=== PATIENT | female | born 1960 ===

== ENCOUNTER 2017-03-17 17:10 | Emergency (ER) | payer MEDICAID ==
[2017-03-17 17:18] VITALS: BP 115/67; PULSE 65; RESP 18; TEMP 98.1; O2SAT 100
[2017-03-17] MEDS ORDERED: Atropine-Diphenoxylate 0.025-2.5 mg Tab PO STA (17:46)
[2017-03-17] MEDS ORDERED: Sodium Chloride 0.9% 1,000 ML IV STA (17:46)
--- NOTE | 2017-03-17 17:51 | ED PDOC ---
HPI: Abdomen Time Seen by Provider: 03/17/17 17:33 Chief Complaint (Nursing): GI Problem Chief Complaint (Provider): Diarrhea History Per: Patient History/Exam Limitations: no limitations Current Symptoms Are (Timing): Still Present Severity: Moderate Associated Symptoms: denies: Fever, Vomiting Additional Complaint(s): Estephanie Chicas is a 56 y/o female presenting to the ER on 03/17/2017 with diarrhea for two weeks. Patient denies any bleeding, fever, or vomiting. However, she reports associated generalized abdominal pain. Patient notes she recently returned from [place]. Offers no other medical or physical complaints at this time. Past Medical History Reviewed: Historical Data, Nursing Documentation, Vital Signs Vital Signs: Last Vital Signs Temp 98.1 F 03/17/17 17:12 Pulse 65 03/17/17 17:12 Resp 18 03/17/17 17:12 BP 115/67 03/17/17 17:12 Pulse Ox 100 03/17/17 17:55 - Medical History PMH: Depression, Gastritis, HTN, Hypercholesterolemia - Surgical History Surgical History: No Surg Hx - Family History Family History: States: Hypertension - Social History Current smoker - smoking cessation education provided: No Alcohol: None Drugs: Denies - Home Medications Home Medications: Ambulatory Orders Medication Instructions Recorded Escitalopram [Lexapro] 10 mg PO DAILY 04/09/15 Naproxen 500 mg PO BID PRN #14 tab 04/09/15 Sulfamethoxazole/Trimethopri 1 tab PO BID #20 tab 04/09/15 [Bactrim Ds 800 mg-160 mg] Zolpidem Tartrate [Zolpidem] 10 mg PO HS 04/09/15 Albuterol Sulfate [Ventolin Hfa] 2 puff IH Q6H PRN 04/15/15 Atorvastatin Calcium [Lipitor] 20 mg PO DAILY 04/15/15 Clindamycin [Cleocin] 300 mg PO QID #40 cap 04/15/15 Ergocalciferol (Vitamin D2) 50,000 unit PO QWK 04/15/15 [Vitamin D] HCTZ/Losartan Potassium [Hyzaar 1 tab PO DAILY 04/15/15 12.5 mg-50 mg] Ibuprofen [Motrin] 600 mg PO Q6H PRN #15 tab 04/15/15 Mometasone/Formoterol [Dulera] 1 puff IH BID 04/15/15 Olanzapine [Zyprexa] 2.5 mg PO BID 04/15/15 oxyCODONE/Acetaminophen [Percocet 1 ea PO Q6H PRN #15 tab 04/15/15 5/325 mg Tab] Guaifenesin [Mucinex] 600 mg PO BID PRN #10 tab 12/12/15 Ibuprofen 600 mg PO Q6 PRN #20 tablet 12/12/15 Loperamide [Imodium] 2 mg PO Q4 PRN #12 cap 12/12/15 Dicyclomine [Dicyclomine HCl] 10 mg PO BID PRN #10 cap 01/06/16 Famotidine [Pepcid] 20 mg PO BID #30 tab 01/06/16 Nitrofurantoin Macrocrystals 100 mg PO BID #14 cap 01/06/16 [Macrobid] Ibuprofen [Motrin] 600 mg PO Q6 #20 tab 02/06/16 Ciprofloxacin [Cipro] 500 mg PO BID #10 tab 10/11/16 Atropine/Diphenoxylate [Lonox 1 tab PO Q8 #10 tab 03/17/17 0.025 MG-2.5 MG] - Allergies Allergies/Adverse Reactions: Allergies Allergy/AdvReac Type Severity Reaction Status Date / Time Penicillins Allergy ANAPHYLAXIS Verified 03/08/16 11:40 Review of Systems ROS Statement: Except As Marked, All Systems Reviewed And Found Negative Constitutional: Negative for: Fever Gastrointestinal: Positive for: Abdominal Pain (generalized ), Diarrhea. Negative for: Vomiting, Hematochezia Genitourinary Female: Negative for: Hematuria Physical Exam - Reviewed Nursing Documentation Reviewed: Yes Vital Signs Reviewed: Yes - Physical Exam Appears: Positive for: Non-toxic, No Acute Distress Head Exam: Positive for: ATRAUMATIC, NORMOCEPHALIC Skin: Positive for: Normal Color. Negative for: Rash Eye Exam: Positive for: Normal appearance, EOMI, PERRL Neck: Positive for: Normal, Painless ROM, Supple Cardiovascular/Chest: Positive for: Regular Rate, Rhythm. Negative for: Murmur Respiratory: Positive for: Normal Breath Sounds. Negative for: Wheezing, Respiratory Distress Gastrointestinal/Abdominal: Positive for: Tenderness ((+) mild diffuse w/ no localization ) Extremity: Positive for: Normal ROM. Negative for: Tenderness, Deformity, Swelling Neurologic/Psych: Positive for: Alert, Oriented. Negative for: Motor/Sensory Deficits - Laboratory Results Result Diagrams: 03/17/17 18:20 03/17/17 18:20 - ECG O2 Sat by Pulse Oximetry: 100 Medical Decision Making Medical Decision Makin:33 Initial Impression- 56 y/o female with diarrhea Initial Plan- * CMP * CBC w/ differential * Sodium Chloride 1,000 ml IV * Atropine/Diphenoxylate * Re-evaluate Documented by Yuan Salazar, acting as a scribe for Luis Shah MD. All medical record entries made by the Scribe were at my direction and personally dictated by me. I have reviewed the chart and agree that the record accurately reflects my personal performance of the history, physical exam, medical decision making, and the department course for this patient. I have also personally directed, reviewed, and agree with the discharge instructions and disposition. Disposition - Clinical Impression Clinical Impression: Gastroenteritis - Patient ED Disposition Is Patient to be Admitted: No - Disposition Referrals: [facility] [Outside] Disposition: Routine/Home Disposition Time: 20:28 Condition: FAIR Prescriptions: Atropine/Diphenoxylate [Lonox 0.025 MG-2.5 MG] 1 tab PO Q8 #10 tab Instructions: Gastroenteritis (ED)
[2017-03-17 18:36] LABS: BASO # 0.1 K/uL (0.0-0.2); BASO % 0.6 % (0.0-2.0); EOS # 0.1 K/uL (0.0-0.7); EOS % 0.8 % (0.0-4.0); HEMATOCRIT 36.9 % (34.0-47.0); LYMPH # 3.7 K/uL (1.0-4.3); LYMPH % 40.1 % (20.0-40.0); MEAN CELL VOLUME 90.3 fl (81.0-99.0); MEAN CORPUSCULAR HEMOGLOBIN 29.9 pg (27.0-31.0); MEAN CORPUSCULAR HGB CONC 33.1 g/dL (33.0-37.0); MEAN PLATELET VOLUME 8.9 fl (7.2-11.7); MONO # 0.8 K/uL (0.0-0.8); MONO % 9.1 % (0.0-10.0); NEUT # 4.5 K/uL (1.8-7.0); NEUT % 49.4 % (50.0-75.0); NRBC % 0.1 % (0.0-0.0); RED CELL DISTRIBUTION WIDTH 14.3 % (11.5-14.5); WHITE BLOOD COUNT 9.2 K/uL (4.8-10.8)
[2017-03-17 18:39] LABS: ALB/GLOB RATIO 1.1 (1.0-2.1); ALKALINE PHOSPHATASE 52 U/L (38-126); ALT/SGPT 50 U/L (9-52); AST/SGOT 25 U/L (14-36); BILIRUBIN,TOTAL 0.4 mg/dl (0.2-1.3); BLOOD UREA NITROGEN 14 mg/dl (7-17); CALCIUM 9.1 mg/dL (8.4-10.2); CARBON DIOXIDE 22 mmol/L (22-30); CHLORIDE 105 mmol/L (98-107); GFR AFRICAN-AMERICAN > 60; GLUCOSE,RANDOM 108 mg/dL (65-105); SODIUM 140 mmol/l (132-148)
== END 2017-03-17 21:50 | disposition home or self-care (01) ==
LOC: H.ER 17:10
DX: K52.9 Noninfective gastroenteritis and colitis, unspecified (principal); E78.00 Pure hypercholesterolemia, unspecified; F32.9 Major depressive disorder, single episode, unspecified; I10 Essential (primary) hypertension; Z88.0 Allergy status to penicillin

== ENCOUNTER 2017-04-26 20:07 | Emergency (ER) | payer MEDICAID ==
[2017-04-26 20:13] VITALS: BP 120/69; PULSE 60; RESP 16; TEMP 98.2; O2SAT 99
--- NOTE | 2017-04-26 20:51 | ED PDOC ---
HPI: Female Pain Time Seen by Provider: 04/26/17 20:21 Chief Complaint (Nursing): Female Genitourinary Chief Complaint (Provider): Vaginal itching and discharge History Per: Patient History/Exam Limitations: no limitations Onset/Duration Of Symptoms: Days (3) Additional Complaint(s): Pt reports itchy rash on the external genitals and thick white discharge x 2 days. Past Medical History Reviewed: Historical Data, Nursing Documentation, Vital Signs Vital Signs: Last Vital Signs Temp 98.2 F 04/26/17 20:10 Pulse 60 04/26/17 20:10 Resp 16 04/26/17 20:10 BP 120/69 04/26/17 20:10 Pulse Ox 99 04/26/17 20:10 - Medical History PMH: Depression, Gastritis, HTN, Hypercholesterolemia - Surgical History Surgical History: No Surg Hx - Family History Family History: States: Hypertension - Living Arrangements Living Arrangements: With Family - Social History Current smoker - smoking cessation education provided: No - Home Medications Home Medications: Ambulatory Orders Medication Instructions Recorded Escitalopram [Lexapro] 10 mg PO DAILY 04/09/15 Naproxen 500 mg PO BID PRN #14 tab 04/09/15 Sulfamethoxazole/Trimethopri 1 tab PO BID #20 tab 04/09/15 [Bactrim Ds 800 mg-160 mg] Zolpidem Tartrate [Zolpidem] 10 mg PO HS 04/09/15 Albuterol Sulfate [Ventolin Hfa] 2 puff IH Q6H PRN 04/15/15 Atorvastatin Calcium [Lipitor] 20 mg PO DAILY 04/15/15 Clindamycin [Cleocin] 300 mg PO QID #40 cap 04/15/15 Ergocalciferol (Vitamin D2) 50,000 unit PO QWK 04/15/15 [Vitamin D] HCTZ/Losartan Potassium [Hyzaar 1 tab PO DAILY 04/15/15 12.5 mg-50 mg] Ibuprofen [Motrin] 600 mg PO Q6H PRN #15 tab 04/15/15 Mometasone/Formoterol [Dulera] 1 puff IH BID 04/15/15 Olanzapine [Zyprexa] 2.5 mg PO BID 04/15/15 oxyCODONE/Acetaminophen [Percocet 1 ea PO Q6H PRN #15 tab 04/15/15 5/325 mg Tab] Guaifenesin [Mucinex] 600 mg PO BID PRN #10 tab 12/12/15 Ibuprofen 600 mg PO Q6 PRN #20 tablet 12/12/15 Loperamide [Imodium] 2 mg PO Q4 PRN #12 cap 12/12/15 Dicyclomine [Dicyclomine HCl] 10 mg PO BID PRN #10 cap 01/06/16 Famotidine [Pepcid] 20 mg PO BID #30 tab 01/06/16 Nitrofurantoin Macrocrystals 100 mg PO BID #14 cap 01/06/16 [Macrobid] Ibuprofen [Motrin] 600 mg PO Q6 #20 tab 02/06/16 Ciprofloxacin [Cipro] 500 mg PO BID #10 tab 10/11/16 Atropine/Diphenoxylate [Lonox 1 tab PO Q8 #10 tab 03/17/17 0.025 MG-2.5 MG] Fluconazole [Diflucan] 150 mg PO ONCE #1 tab 04/26/17 - Allergies Allergies/Adverse Reactions: Allergies Allergy/AdvReac Type Severity Reaction Status Date / Time Penicillins Allergy ANAPHYLAXIS Verified 03/08/16 11:40 Review of Systems ROS Statement: Except As Marked, All Systems Reviewed And Found Negative Constitutional: Negative for: Fever Genitourinary Female: Positive for: Vaginal Discharge, Rash Physical Exam - Reviewed Nursing Documentation Reviewed: Yes Vital Signs Reviewed: Yes - Physical Exam Appears: Positive for: Well, Non-toxic, No Acute Distress Head Exam: Positive for: ATRAUMATIC, NORMAL INSPECTION, NORMOCEPHALIC Skin: Positive for: Normal Color, Warm, DRY Eye Exam: Positive for: Normal appearance ENT: Positive for: Normal ENT Inspection Neck: Positive for: Normal, Painless ROM Respiratory: Negative for: Accessory Muscle Use, Respiratory Distress Back: Positive for: Normal Inspection Extremity: Positive for: Normal ROM. Negative for: Tenderness Neurologic/Psych: Positive for: Alert, Oriented - ECG O2 Sat by Pulse Oximetry: 99 Disposition - Clinical Impression Clinical Impression: Vulvovaginal candidiasis - Patient ED Disposition Is Patient to be Admitted: No Counseled Patient/Family Regarding: Diagnosis, Need For Followup, Rx Given - Disposition Referrals: [facility] [Outside] Disposition: Routine/Home Disposition Time: 21:03 Condition: GOOD Prescriptions: Fluconazole [Diflucan] 150 mg PO ONCE #1 tab Instructions: Vulvovaginal Candidiasis (ED)
== END 2017-04-26 21:19 | disposition home or self-care (01) ==
LOC: H.ER 20:07
DX: B37.3 Candidiasis of vulva and vagina (principal); E78.00 Pure hypercholesterolemia, unspecified; I10 Essential (primary) hypertension; Z88.0 Allergy status to penicillin

== ENCOUNTER 2017-09-13 14:56 | Emergency (ER) | payer MEDICAID ==
[2017-09-13 15:07] VITALS: RESP 20; TEMP 97.9; O2SAT 99
[2017-09-13] MEDS ORDERED: Albuterol-Ipratrop 3 mg / 0.5 (3 ml) UD INH STA (15:28)
--- NOTE | 2017-09-13 15:41 | ED PDOC ---
HPI: Chest Pain Time Seen by Provider: 09/13/17 15:09 Chief Complaint (Nursing): Chest Pain Chief Complaint (Provider): Palpitations, difficulty breathing History Per: Patient History/Exam Limitations: no limitations Onset/Duration Of Symptoms: Days (x2) Current Symptoms Are (Timing): Still Present Additional Complaint(s): Estephanie Marquez is a 57 year old obese female with a past medical history of hypertension, high cholesterol, and sleep apnea presenting to the ED for an evaluation of palpitations and difficulty breathing when walking occurring for 2 days prior to arrival. The patient reports visiting the clinic for similar symptoms on September 02, 2017 where she had a mammogram and an ultrasound completed, and was then referred to [facility] for a follow up but did not follow up. The patient reports associated sharp, intermittent back pain for which she normally takes Ibuprofen. She denies fever. Of note, the patient takes Losartan for her hypertension. PMD: Naya Beth MD Past Medical History Reviewed: Historical Data, Nursing Documentation, Vital Signs Vital Signs: Last Vital Signs Temp 97.9 F 09/13/17 15:04 Pulse 66 09/13/17 15:04 Resp 20 09/13/17 15:04 BP 110/52 L 09/13/17 15:04 Pulse Ox 99 09/13/17 15:04 - Medical History PMH: Depression, Gastritis, HTN, Hypercholesterolemia, Sleep Apnea - Family History Family History: States: Hypertension - Social History Current smoker - smoking cessation education provided: No Ex-Smoker (has not smoked in the last 12 months): Yes - Home Medications Home Medications: Ambulatory Orders Medication Instructions Recorded Escitalopram [Lexapro] 10 mg PO DAILY 04/09/15 Naproxen 500 mg PO BID PRN #14 tab 04/09/15 Sulfamethoxazole/Trimethopri 1 tab PO BID #20 tab 04/09/15 [Bactrim Ds 800 mg-160 mg] Zolpidem Tartrate [Zolpidem] 10 mg PO HS 04/09/15 Albuterol Sulfate [Ventolin Hfa] 2 puff IH Q6H PRN 04/15/15 Atorvastatin Calcium [Lipitor] 20 mg PO DAILY 04/15/15 Clindamycin [Cleocin] 300 mg PO QID #40 cap 04/15/15 Ergocalciferol (Vitamin D2) 50,000 unit PO QWK 04/15/15 [Vitamin D] HCTZ/Losartan Potassium [Hyzaar 1 tab PO DAILY 04/15/15 12.5 mg-50 mg] Ibuprofen [Motrin] 600 mg PO Q6H PRN #15 tab 04/15/15 Mometasone/Formoterol [Dulera] 1 puff IH BID 04/15/15 Olanzapine [Zyprexa] 2.5 mg PO BID 04/15/15 oxyCODONE/Acetaminophen [Percocet 1 ea PO Q6H PRN #15 tab 04/15/15 5/325 mg Tab] Guaifenesin [Mucinex] 600 mg PO BID PRN #10 tab 12/12/15 Ibuprofen 600 mg PO Q6 PRN #20 tablet 12/12/15 Loperamide [Imodium] 2 mg PO Q4 PRN #12 cap 12/12/15 Dicyclomine [Dicyclomine HCl] 10 mg PO BID PRN #10 cap 01/06/16 Famotidine [Pepcid] 20 mg PO BID #30 tab 01/06/16 Nitrofurantoin Macrocrystals 100 mg PO BID #14 cap 01/06/16 [Macrobid] Ibuprofen [Motrin] 600 mg PO Q6 #20 tab 02/06/16 Ciprofloxacin [Cipro] 500 mg PO BID #10 tab 10/11/16 Atropine/Diphenoxylate [Lonox 1 tab PO Q8 #10 tab 03/17/17 0.025 MG-2.5 MG] Fluconazole [Diflucan] 150 mg PO ONCE #1 tab 04/26/17 - Allergies Allergies/Adverse Reactions: Allergies Allergy/AdvReac Type Severity Reaction Status Date / Time Penicillins Allergy ANAPHYLAXIS Verified 03/08/16 11:40 Review of Systems ROS Statement: Except As Marked, All Systems Reviewed And Found Negative Constitutional: Negative for: Fever Cardiovascular: Positive for: Palpitations Respiratory: Positive for: Shortness of Breath (difficulty breathing) Musculoskeletal: Positive for: Back Pain Physical Exam - Reviewed Nursing Documentation Reviewed: Yes Vital Signs Reviewed: Yes - Physical Exam Appears: Positive for: Well (well nourised, obese), Non-toxic, No Acute Distress Head Exam: Positive for: ATRAUMATIC, NORMOCEPHALIC Skin: Positive for: Normal Color, Warm, Dry. Negative for: Rash Eye Exam: Positive for: Normal appearance, EOMI ENT: Positive for: Normal ENT Inspection Neck: Positive for: Normal, Painless ROM Cardiovascular/Chest: Positive for: Regular Rate, Rhythm, Chest Non Tender. Negative for: Edema Respiratory: Positive for: Normal Breath Sounds (good air entry). Negative for : Rales, Wheezing, Respiratory Distress Gastrointestinal/Abdominal: Positive for: Normal Exam, Soft, Other (protuberant) . Negative for: Tenderness Back: Positive for: Normal Inspection. Negative for: L CVA Tenderness, R CVA Tenderness Extremity: Positive for: Normal ROM. Negative for: Pedal Edema, Deformity Neurologic/Psych: Positive for: Alert, Oriented (x3). Negative for: Motor/ Sensory Deficits, Other (no focal deficits) - ECG O2 Sat by Pulse Oximetry: 99 (RA) Pulse Ox Interpretation: Normal Medical Decision Making Medical Decision Making: Time: 15:09 Impression: Palpitations, difficulty breathing, back pain Plan: * ED EKG * BMP * CBC (with differential) * Troponin I * Duoneb 3 mg/0.5 mg (3 ml) UD 3 ml INH * Peak Flow pre/post Tx * [RAD] Chest Two Views (PA/LAT) * Reevaluation Scribe Attestation: Documented by Chika Prieto, acting as a scribe for Ranjana Crespo MD. Provider Scribe Attestation: All medical record entries made by the Scribe were at my direction and personally dictated by me. I have reviewed the chart and agree that the record accurately reflects my personal performance of the history, physical exam, medical decision making, and the department course for this patient. I have also personally directed, reviewed, and agree with the discharge instructions and disposition. Disposition - Disposition
[2017-09-13 15:59] LABS: BASO % 0.2 % (0.0-2.0); EOS # 0.1 K/uL (0.0-0.7); EOS % 0.7 % (0.0-4.0); HEMATOCRIT 37.8 % (34.0-47.0); LYMPH # 3.8 K/uL (1.0-4.3); LYMPH % 43.5 % (20.0-40.0); MEAN CELL VOLUME 88.4 fl (81.0-99.0); MEAN CORPUSCULAR HEMOGLOBIN 30.3 pg (27.0-31.0); MEAN CORPUSCULAR HGB CONC 34.3 g/dL (33.0-37.0); MEAN PLATELET VOLUME 8.6 fl (7.2-11.7); MONO # 0.6 K/uL (0.0-0.8); MONO % 7.1 % (0.0-10.0); NEUT # 4.3 K/uL (1.8-7.0); NEUT % 48.5 % (50.0-75.0); NRBC % 0.1 % (0.0-0.0); RED CELL DISTRIBUTION WIDTH 14.2 % (11.5-14.5); WHITE BLOOD COUNT 8.8 K/uL (4.8-10.8)
[2017-09-13] MEDS ORDERED: Albuterol-Ipratrop 3 mg / 0.5 (3 ml) UD ONE (15:59)
--- NOTE | 2017-09-13 16:07 | RAD ---
HISTORY: chest pain COMPARISON: Chest radiographs 12/12/2015. TECHNIQUE: Chest PA and lateral FINDINGS: LUNGS: Trace left perihilar fibrosis again appreciated however there is no acute infiltrate identified bilaterally. PLEURA: No significant pleural effusion identified. No pneumothorax apparent. CARDIOVASCULAR: Normal. OSSEOUS STRUCTURES: No significant abnormalities. VISUALIZED UPPER ABDOMEN: Normal. OTHER FINDINGS: None. IMPRESSION: No acute cardiopulmonary is appreciable. Limited fibrosis again noted at the left perihilar region.
[2017-09-13 16:13] LABS: BLOOD UREA NITROGEN 16 mg/dl (7-17); CALCIUM 9.7 mg/dL (8.4-10.2); CARBON DIOXIDE 25 mmol/L (22-30); CHLORIDE 102 mmol/L (98-107); GFR AFRICAN-AMERICAN > 60; GLUCOSE,RANDOM 99 mg/dL (65-105); POTASSIUM 3.9 MMOL/L (3.6-5.0); SODIUM 139 mmol/l (132-148)
--- NOTE | 2017-09-13 16:20 | ED PDOC ---
- Laboratory Results Result Diagrams: 09/13/17 15:52 09/13/17 15:52 - ECG O2 Sat by Pulse Oximetry: 99 (RA) Pulse Ox Interpretation: Normal Medical Decision Making Medical Decision Makin:00 Patient signed over from Ranjana Crespo MD to me, Luis Shah MD pending Troponins. EKG NSR with no acute ST changes. Troponin nl. Description of pain does not appear to present as cardiac type pain. Pt to f/u with PMD and cardiology. Return to ED if chest pain recurs. Scribe Attestation: Documented by Chika Prieto, acting as a scribe for Luis Shah MD. Provider Scribe Attestation: All medical record entries made by the Scribe were at my direction and personally dictated by me. I have reviewed the chart and agree that the record accurately reflects my personal performance of the history, physical exam, medical decision making, and the department course for this patient. I have also personally directed, reviewed, and agree with the discharge instructions and disposition. Disposition - Clinical Impression Clinical Impression: Atypical chest pain - POA Present On Arrival: None - Disposition Referrals: [facility] [Outside] Disposition: Routine/Home Disposition Time: 16:34 Condition: FAIR Instructions: Chest Pain (ED) Forms: [employer] (Greenlandic)
[2017-09-13 16:46] VITALS: BP 124/61; PULSE 67
--- NOTE | 2017-09-15 10:07 | CARD ---
APPROVED REPORT EKG Measurement Heart [id number] <Conclusion> Normal sinus rhythm Normal ECG
== END 2017-09-13 16:44 | disposition home or self-care (01) ==
LOC: H.ER 14:56
DX: R07.89 Other chest pain (principal); E66.9 Obesity, unspecified; E78.00 Pure hypercholesterolemia, unspecified; F32.9 Major depressive disorder, single episode, unspecified; G47.30 Sleep apnea, unspecified; I10 Essential (primary) hypertension; Z87.891 Personal history of nicotine dependence; Z88.0 Allergy status to penicillin

== ENCOUNTER 2018-01-19 18:46 | Emergency (ER) | payer MEDICAID ==
[2018-01-19 18:53] VITALS: TEMP 98.2
--- NOTE | 2018-01-19 19:49 | ED PDOC ---
Syncope/Near Syncope/Dizziness Time Seen by Provider: 01/19/18 19:14 Chief Complaint (Nursing): Dizziness/Lightheaded Chief Complaint (Provider): Dizziness History Per: Patient, Family Onset/Duration Of Symptoms: Days (2 days) Current Symptoms Are (Timing): Gone Now Activity At Onset Of Symptoms: Lying, Sitting Additional Complaint(s): 57 y/o obese F with PMHx of HTN, Hypercholesterolemia, MIgraines?, Vertigo presents to ED complaining of dizziness. Patient states that her dizziness started 2 days ago, described as the feeling of the room spinning around her, while she was lying in bed, aggravating with positional changes, such as from lying to sitting position, associated with bilateral frontal throbbing headaches , and bilateral ear pain. However denies any complains at this evaluation. Denies dizziness, headaches or other complains at this time. Denies fevers, chills, recent URI, N/V, abdominal pain, diarrheas, urinary symptoms, blurry vision, weakness, facial weakness. Patient reports a h/o vertigo, and she takes Meclizine for her vertigo, which relieves her vertigo, but this time it did not help, however she did not take it today, and her dizziness resolved now. PMD: Naya Beth/has an oncoming appointment on January, Past Medical History Vital Signs: Last Vital Signs Temp 98.2 F 01/19/18 18:50 Pulse 61 01/19/18 18:50 Resp 18 01/19/18 18:50 BP 118/72 01/19/18 18:50 Pulse Ox 99 01/19/18 18:50 - Medical History PMH: Depression, Gastritis, HTN, Hypercholesterolemia, Sleep Apnea - Family History Family History: States: Hypertension - Home Medications Home Medications: Ambulatory Orders Medication Instructions Recorded Escitalopram [Lexapro] 10 mg PO DAILY 04/09/15 Naproxen 500 mg PO BID PRN #14 tab 04/09/15 Sulfamethoxazole/Trimethopri 1 tab PO BID #20 tab 04/09/15 [Bactrim Ds 800 mg-160 mg] Zolpidem Tartrate [Zolpidem] 10 mg PO HS 04/09/15 Albuterol Sulfate [Ventolin Hfa] 2 puff IH Q6H PRN 07/24/15 Atorvastatin Calcium [Lipitor] 20 mg PO DAILY 04/15/15 Clindamycin [Cleocin] 300 mg PO QID #40 cap 04/15/15 Ergocalciferol (Vitamin D2) 50,000 unit PO QWK 04/15/15 [Vitamin D] HCTZ/Losartan Potassium [Hyzaar 1 tab PO DAILY 04/15/15 12.5 mg-50 mg] Ibuprofen [Motrin] 600 mg PO Q6H PRN #15 tab 04/15/15 Mometasone/Formoterol [Dulera] 1 puff IH BID 04/15/15 Olanzapine [Zyprexa] 2.5 mg PO BID 04/15/15 oxyCODONE/Acetaminophen [Percocet 1 ea PO Q6H PRN #15 tab 04/15/15 5/325 mg Tab] Guaifenesin [Mucinex] 600 mg PO BID PRN #10 tab 12/12/15 Ibuprofen 600 mg PO Q6 PRN #20 tablet 12/12/15 Loperamide [Imodium] 2 mg PO Q4 PRN #12 cap 12/12/15 Dicyclomine [Dicyclomine HCl] 10 mg PO BID PRN #10 cap 01/06/16 Famotidine [Pepcid] 20 mg PO BID #30 tab 01/06/16 Nitrofurantoin Macrocrystals 100 mg PO BID #14 cap 01/06/16 [Macrobid] Ibuprofen [Motrin] 600 mg PO Q6 #20 tab 02/06/16 Ciprofloxacin [Cipro] 500 mg PO BID #10 tab 10/11/16 Atropine/Diphenoxylate [Lonox 1 tab PO Q8 #10 tab 03/17/17 0.025 MG-2.5 MG] Fluconazole [Diflucan] 150 mg PO ONCE #1 tab 04/26/17 Prednisone 50 mg PO DAILY #5 tab 09/13/17 - Allergies Allergies/Adverse Reactions: Allergies Allergy/AdvReac Type Severity Reaction Status Date / Time Penicillins Allergy ANAPHYLAXIS Verified 01/19/18 18:50 Review of Systems ROS Statement: Except As Marked, All Systems Reviewed And Found Negative Physical Exam - Reviewed Vital Signs Reviewed: Yes - Physical Exam Appears: Positive for: Well, Non-toxic, No Acute Distress. Negative for: Uncomfortable, In Acute Distress Head Exam: Positive for: ATRAUMATIC, NORMOCEPHALIC Skin: Positive for: Normal Color, Warm, Dry. Negative for: Pallor, Jaundice, Cyanosis Eye Exam: Positive for: Normal appearance, EOMI, PERRL. Negative for: Nystagmus ENT: Positive for: Pharynx Is, TM Is/Are (WNL), Other (external auditory canal with evidence of mild congestion bilateral). Negative for: Nasal Congestion Cardiovascular/Chest: Positive for: Regular Rate, Rhythm, Murmur. Negative for : Chest Non Tender, Edema, Gallop Respiratory: Positive for: Normal Breath Sounds. Negative for: Decreased Breath Sounds, Accessory Muscle Use, Crackles, Rhonchi, Wheezing, Respiratory Distress Pulses-Dorsalis Pedis (L): 3+/4+ Pulses-Dorsalis Pedis (R): 3+/4+ Pulses-Post. Tibialis (L): 3+/4+ Pulses-Post. Tibialis (R): 3+/4+ Pulses-Radial (L): 3+/4+ Pulses-Radial (R): 3+/4+ Gastrointestinal/Abdominal: Positive for: Bowel Sounds, Soft. Negative for: Tenderness, Distended, Guarding Extremity: Negative for: Pedal Edema, Calf Tenderness Neurologic/Psych: Positive for: Alert, mix maker II-XII, Oriented, Gait (normal). Negative for: Motor/Sensory Deficits, Cerebellar Tests, Aphasia, Facial Droop - Laboratory Results Result Diagrams: 01/19/18 20:20 01/19/18 20:20 - ECG O2 Sat by Pulse Oximetry: 99 Medical Decision Making Medical Decision Making: Most likely Vertigo Plan: Vital signs WNL Unremarkable Neurological exam, no neurological deficit noted. denies Dizziness/vertigo and/or headaches at this time. Can take Meclizine at home -recommended F/u with PMD as outpatient. Patient has an appointment with PMD on February 04 Re-evaluation patient states her dizziness is coming back Give meclizine 25 mg PO once CBC, BMP Re-evaluation BMP: remarkable for mild low potassium 3.4, CBC : WNL Give potassium 20 meq po once patient states dizziness resolved after Meclizine 25 mg po once stable to be discharge home with outpatient f/u with PMD Disposition - Clinical Impression Clinical Impression: Dizziness - Patient ED Disposition Is Patient to be Admitted: No Discussed With Dr.: Luis Shah - Disposition Referrals: Naya Beth MD [Family Provider] - Disposition: Routine/Home Disposition Time: 21:30 Condition: GOOD Additional Instructions: F./u with PMD Dr. Beth on February 04, 2018 as scheduled ( by patient's report) Instructions: Vertigo (a Type of Dizziness) Forms: [employer] (Danish)
[2018-01-19 20:40] LABS: BASO % 0.3 % (0.0-2.0); EOS # 0.1 K/uL (0.0-0.7); HEMOGLOBIN 13.7 g/dL (12.0-16.0); LYMPH % 41.2 % (20.0-40.0); MEAN CORPUSCULAR HEMOGLOBIN 29.9 pg (27.0-31.0); MEAN CORPUSCULAR HGB CONC 33.2 g/dL (33.0-37.0); MEAN PLATELET VOLUME 9.6 fl (7.2-11.7); MONO # 0.7 K/uL (0.0-0.8); MONO % 6.9 % (0.0-10.0); NEUT # 4.9 K/uL (1.8-7.0); NEUT % 50.6 % (50.0-75.0); NRBC % 0.1 % (0.0-0.0); RBC 4.58 Mil/uL (3.80-5.20); RED CELL DISTRIBUTION WIDTH 14.6 % (11.5-14.5); WHITE BLOOD COUNT 9.8 K/uL (4.8-10.8)
[2018-01-19 20:47] LABS: BLOOD UREA NITROGEN 25 mg/dl (7-17); CALCIUM 9.5 mg/dL (8.4-10.2); GFR AFRICAN-AMERICAN > 60; GFR NON-AFRICAN AMERICAN > 60
[2018-01-19] MEDS ORDERED: Potassium Chloride 20 mEq ER Tab PO ONE (20:59)
[2018-01-19 21:53] VITALS: BP 136/72; PULSE 58; RESP 16; O2SAT 100
== END 2018-01-19 21:55 | disposition home or self-care (01) ==
LOC: H.ER 18:46
DX: R42 Dizziness and giddiness (principal); E78.00 Pure hypercholesterolemia, unspecified; F32.9 Major depressive disorder, single episode, unspecified; I10 Essential (primary) hypertension; Z88.0 Allergy status to penicillin